=== PATIENT | male | born 1950 | race Caucasian/White ===

== ENCOUNTER 2016-09-23 17:32 | Emergency (ER) | payer OTHER ==
[~2016-09-23 17:32] MED LIST: MEDROL DOSEPAK1 PAC PO; NORCO 325 MG-51 TAB PO; PROAIR HFA0.09 MG/Ac INH; ROBITUSSIN W/CO10 ML PO; TAMIFLU 75MG75 MG PO
[2016-09-23 17:42] VITALS: BP 161/80
--- NOTE | 2016-09-23 18:10 | ED DYSPNEA/ASTHMA COMPLAINT ---
History of Present Illness General Chief Complaint: General Adult Stated Complaint: COUGHING AND BREATHING PROBLEM Source: patient, old records Exam Limitations: no limitations Vital Signs & Intake/Output Vital Signs & Intake/Output Vital Signs Date Time Temp Pulse Resp B/P B/P Pulse O2 O2 Flow FiO2 Mean Ox Delivery Rate 09/23 1830 97 Room Air 09/23 1812 83 09/23 1742 99.2 104 16 161/80 95 Room Air Allergies Coded Allergies: shellfish derived (Severe, ANAPHYLAXIS 09/23/16) Reconcile Medications Acetaminophen/Hydrocodone Bi ([place] 325 MG-5 MG) 1 TAB TAB 1 TAB PO Q6HR PRN PAIN Albuterol Sulfate (Proair Hfa) 90 MCG HFA.AER.AD 2 PUF INH Q4-6 PRN PRN ASTHMA (Reported) Albuterol Sulfate (Proair Hfa) 90 MCG HFA.AER.AD 2 PUF INH Q4-6 PRN PRN WHEEZING Azithromycin (Zithromax) 250 MG TABLET 1 DP PO AD bronchitis 2 the first day followed by 1 for days 2-5 Codeine Phosphate/Guaifenesi (Guaifen-Codeine 100-10 MG/5 Ml) 10 MG-100 MG/5 ML LIQUID 10 ML PO Q6HR PRN COUGH Methylprednisolone. (Medrol) 4 MG TAB.DS.PK 1 DP PO AD bronchitis 6 on day 1 then reduce by one tablet daily until gone Prednisone 20 MG TABLET 2 TAB PO DAILY PANCREATIC CA (Reported) Robitussin AC (Guaifenesin-Codeine Syrup) 10 ML UDC 10 ML PO Q6HR PRN COUGH Triage Note: TRIAGE: URI SYMPTOMS WITH PRODUCTIVE COUGH OF WHITE SPUTUM SINCE LAST NIGHT. HX COPD, QUIT SMOKING 3 YEARS AGO. REPORTS DISCOMFORT ONLY WHEN COUGHING TO NECK AND CHEST. FRONTAL AND TEMPORAL HEADACHE 11/30. TOOK ADVIL APPROX 0400 AND 2PM WITH MILD IMPROVEMENT. 02 SAT 95% AND TEMP 99.2 IN TRIAGE. DENIES N/V/D. PANCREATIC CA SX 2 YEARS AGO AT [facility] Triage Nurses Notes Reviewed? yes Onset: Abrupt Duration: day(s): (2), constant Timing: recent history Severity: moderate Activities at Onset: none Prior Episodes/Possible Cause: occasional episodes Modifying Factors: Worsens With: other (cough). Associated Symptoms: cough, wheezing HPI: 66-year-old male with history of COPD pancreatic cancer nonsmoker presents to ER for evaluation Complaining of productive cough of clear to white sputum for the past 2 days. He's been using his inhalers with minimal relief complaining of shortness of breath wheezing. No fever no chills. Patient reports to pain in his chest secondary from coughing. No dizziness lightheadedness, no doll pain nausea vomiting or diarrhea. 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 No modifying factors or associated symptoms (NANI BISHOP) Past History Travel History Traveled to [place] past 21 day No Medical History Any Pertinent Medical History? see below for history Neurological: NONE EENT: NONE Cardiovascular: NONE Respiratory: COPD Gastrointestinal: GERD, STOMACH ULCER Hepatic: NONE Renal: NONE Musculoskeletal: NONE Psychiatric: NONE Endocrine: NONE Blood Disorders: NONE Cancer(s): PANCREATIC CA Surgical History Surgical History: pancreatic ca Psychosocial History Who do you live with Spouse What is your primary language Bulgarian Tobacco Use: Quit >30 days ago ETOH Use: denies use Illicit Drug Use: denies illicit drug use Family History Hx Contributory? No (NANI BISHOP) Review of Systems Review of Systems Constitutional: Reports: see HPI. All Other Systems: Reviewed and Negative Comments Review of systems: See HPI, All other systems negative. Constitutional, no chills no fever, no malaise HEENT: no sore throat no congestion, no ear pain Cardiovascular: No chest pain , no palpitation Skin: no rashes, no change in skin Respiratory: No dyspnea cough no sputum no hemoptysis GI: No nausea no vomiting, no diarrhea, : No dysuria N Muscle skeletal: No joint pain, no back pain, no neck pain, Neurologic: No numbness, no headache Psych: No stress. Heme/endocrine: No bruising no bleeding Immunology: No lymphadenopathy (NANI BISHOP) Physical Exam Physical Exam General Appearance: well developed/nourished, no apparent distress, alert, awake Respiratory: rhonchi, wheezing Comments: Well-developed well-nourished person in no acute distress HEENT: Normal EENT exam; PERRL, EOMI,. HEAD is atraumatic. moist mucous membranes. Neck: Supple, no lymphadenopathy, normal range of motion Back: Nontender, no CVA tenderness. Full range of motion Cardiovascular: Regular rate and rhythms no murmurs rubs Respiratory: Chest nontender.There were no bony deformities, no asymmetry. No respiratory distress. Patient speaking in 3-4 word sentences, lungs are rhonchorous wheezing bilaterally Abdomen: Soft, nontender nondistended, Extremity: No edema, full range of motion of extremities Neuro: Alert oriented x3, motor sensory normal, . There were no obvious focal neurologic abnormalities. Skin: No appreciable rash on exposed skin, skin is warm and dry. Psych: Mood and affect is normal, memory and judgment is normal. Core Measures ACS in differential dx? Yes Severe Sepsis Present: No Septic Shock Present: No (SWETA CORONA,NANI) Progress Differential Diagnosis: asthma, AMI, bronchitis, costochondritis, CHF, COPD, musculoskeletal pain, pericarditis, pneumonia Plan of Care: Orders Procedure Date/time Status BLOOD CULTURE 09/23 1808 Active TROPONIN LEVEL 09/23 1808 Complete COMPREHENSIVE METABOLIC PANEL 09/23 1808 Complete CBC WITHOUT DIFFERENTIAL 09/23 1808 Complete EKG 09/23 173 Active Laboratory Tests 09/23/16 1825: Anion Gap 12, Estimated GFR > 60, BUN/Creatinine Ratio 15.0, Glucose 93, Calcium 8.7, Total Bilirubin 0.5, AST 30, ALT 41, Alkaline Phosphatase 115, Troponin I < 0.01, Total Protein 7.7, Albumin 4.6, Globulin 3.1, Albumin/Globulin Ratio 1.5, CBC w Diff NO MAN DIFF REQ, RBC 5.56, MCV 84.6, MCH 28.5, RDW 13.2, MPV 8.2, Gran % 77.2 H, Lymphocytes % 12.2 L, Monocytes % 9.4 H, Eosinophils % 1.0, Basophils % 0.2, Absolute Granulocytes 6.0, Absolute Lymphocytes 1.0 L, Absolute Monocytes 0.7 H, Absolute Eosinophils 0.1, Absolute Basophils 0, PUBS MCHC 33.7 Microbiology 09/23 1845 BLOOD: Blood Culture - RECD 09/23 183 BLOOD: Blood Culture - RECD Patient medicated DuoNeb soluMedrol IV labs ordered Repeat evaluation patient is feeling improved pending labs 09/23/2016 7:29:57 PM patient ambulatory around the ER with steady gait denies shortness of breath feeling much improved with cough medicine. I discussed with the patient at length all of their results. I had an extensive conversation regarding need for close follow up with their primary care physician this week as well as return precautions. I answered all of their questions, they feel comfortable with the plan and follow-up care. I discussed the medications that they will receive with the patient. I gave them signs and symptoms that could indicate an adverse reaction. I have advised them to limit their activities until they can see how they respond to the medication. (NANI BISHOP) Diagnostic Imaging: Viewed by Me: Radiology Read. Discussed w/RAD: Radiology Read. Radiology Impression: PATIENT: LUKAS GARIBAY PRESENT AGE: 66 PATIENT ACCOUNT NO: [id number] : 51 LOCATION: [facility] ORDERING PHYSICIAN: NANI CORONA SERVICE DATE: 09/23/16 EXAM TYPE: RAD - XRY-PORTABLE CHEST XRAY EXAMINATION: XR PORTABLE CHEST CLINICAL INFORMATION: Cough, dyspnea. COMPARISON: Chest x-ray 05/19/[address] chest 05/2014. TECHNIQUE: Portable frontal view of the chest was obtained. 0628 hours FINDINGS: Emphysematous hyperinflation of lungs. Lungs are clear. No pulmonary vascular congestion. No infiltrate or pleural effusion. The heart size is normal. The cardiac and the mediastinal contours are normal. Surgical clips in the upper abdomen. IMPRESSION: No acute abnormality of the chest. DICTATED BY: SARAH CHOE MD DATE/TIME DICTATED:09/23/161835 MDS RN:DIEGO DATE/TIME TRANSCRIBED:09/23/161835 CONFIDENTIAL, DO NOT COPY WITHOUT APPROPRIATE AUTHORIZATION. <Electronically signed in Other Vendor System> SIGNED BY: SARAH CHOE MD 09/23/16 1842 Initial ED EKG: normal intervals, normal p-waves, normal QRS complex, normal sinus rhythm (NANI BISHOP) Departure Departure Time of Disposition: 1919 Disposition: HOME OR SELF CARE Condition: Stable Clinical Impression Primary Impression: Bronchitis Referrals: MARGI WEISS MD (PCP/Family) Additional Instructions: zpak, medrol dose ngoc as directed. follow up with dr weiss tomorrow. robitussion with codeine for cough- this maymake you drowsy. return at anytime sooner with any concerns these were sent to [facility] Departure Forms: Customer Survey General Discharge Information Prescriptions: Current Visit Scripts Azithromycin (Zithromax) 1 DP PO AD #6 TAB 2 the first day followed by 1 for days 2-5 Methylprednisolone. (Medrol) 1 DP PO AD #1 DP 6 on day 1 then reduce by one tablet daily until gone Codeine Phosphate/Guaifenesi (Guaifen-Codeine 100-10 MG/5 Ml) 10 ML PO Q6HR PRN COUGH #200 ML Albuterol Sulfate (Proair Hfa) 2 PUF INH Q4-6 PRN PRN WHEEZING #1 INHAL Ref 1 (NANI BISHOP) PA/PROJECT ASST Co-Sign Statement Statement: ED Attending supervision documentation- [X] I saw and evaluated the patient. I have also reviewed all the pertinent lab results and diagnostic results. I agree with the findings and the plan of care as documented in the PA's/PROJECT ASST's documentation. [X] I have reviewed the ED Record and agree with the PA's/PROJECT ASST's documentation. [] Additions or exceptions (if any) to the PAs/PROJECT ASST's note and plan are summarized below: [] (DEE DEE GALLEGOS,AMAYA) Critical Care Note Critical Care Note Critical Care Time: non-applicable (NANI BISHOP)
[2016-09-23 18:41] LABS: ABSOLUTE BASOPHIL COUNT 0 /CUMM (0.0-0.2); ABSOLUTE EOSINOPHIL COUNT 0.1 /CUMM (0.0-0.7); ABSOLUTE MONOCYTE COUNT 0.7 /CUMM (0.10-0.60); BASOPHIL % 0.2 % (0.0-2.0); GRANULOCYTE % 77.2 % (42.2-75.2); MEAN CORPUSCULAR HGB 28.5 PG (27.0-31.0); MEAN CORPUSCULAR HGB CONC 33.7 G/DL (33.0-37.0); MEAN CORPUSCULAR VOLUME 84.6 FL (80.0-94.0); MEAN PLATELET VOLUME 8.2 FL (7.4-10.4); PLATELET COUNT 150 /CUMM (130-400); RBC DISTRIBUTION WIDTH 13.2 % (11.5-14.5); RED BLOOD CELL CT 5.56 /CUMM (4.70-6.10); WHITE BLOOD CELL COUNT 7.8 /CUMM (4.8-10.8)
--- NOTE | 2016-09-23 18:42 | RADIOLOGY REPORT ---
EXAMINATION: XR PORTABLE CHEST CLINICAL INFORMATION: Cough, dyspnea. COMPARISON: Chest x-ray 05/19/[address] chest 07/22/2014. TECHNIQUE: Portable frontal view of the chest was obtained. 0628 hours FINDINGS: Emphysematous hyperinflation of lungs. Lungs are clear. No pulmonary vascular congestion. No infiltrate or pleural effusion. The heart size is normal. The cardiac and the mediastinal contours are normal. Surgical clips in the upper abdomen. IMPRESSION: No acute abnormality of the chest.
[2016-09-23] MEDS ORDERED: PROAIR HFA8.5 GM INH ×2 (19:14→19:34)
[2016-09-23] MEDS ORDERED: PREDNISONE20 M1 PO (19:15)
[2016-09-23] MEDS ORDERED: GUAIFEN-CODEIN118 M1 PO (19:22)
[2016-09-23] MEDS ORDERED: ZITHROMAX250 M2 PO (19:22)
[2016-09-23] MEDS ORDERED: MEDROL4 M2 PO (19:22)
== END 2016-09-23 19:40 ==
LOC: ERH 17:32
PROVIDERS: Physician Assistant Medical
DX: J40 Bronchitis, not specified as acute or chronic (principal); Z87.891 Personal history of nicotine dependence; R06.02 Shortness of breath; R07.9 Chest pain, unspecified
CPT/HCPCS: 1263; 87040; 93005; 93010; 96374; J2930

== ENCOUNTER → 2016-11-25 | Day surgery (SDC) | payer OTHER ==
--- NOTE | 2016-11-19 14:19 | History & Physical Pre-Op ---
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 Shortly after surgery, he developed a bulge in the epigastric region related to surgical scar. The bulge has gotten bigger but it does not cause him pain. He notes no nausea vomiting or change to his bowel function. I saw him previously for a right inguinal hernia and recommended laparoscopic repair. He elected to observe his hernia. Reflected to have both hernias fixed bowel. Allergies/Medications Allergies: Coded Allergies: shellfish derived (Severe, ANAPHYLAXIS 09/23/16) Home Med list Albuterol Sulfate (Proair Hfa) 90 MCG HFA.AER.AD 2 PUF INH Q4-6 PRN PRN ASTHMA (Reported) Pantoprazole Sodium (Protonix) 40 MG TABLET.DR 1 TAB PO DAILY HX ULCERS ( Reported) Past History Medical History Neurological: NONE EENT: NONE Cardiovascular: NONE Respiratory: asthma, COPD, obstructive sleep apnea Gastrointestinal: GERD, STOMACH ULCER Hepatic: NONE Renal: NONE Musculoskeletal: NONE Psychiatric: substance abuse Endocrine: NONE Blood Disorders: NONE Cancer(s): PANCREATIC CA Surgical History Pertinent Surgical History: pancreaticoduodenectomy, partial gastrectomy with B2 Past Family/Social History Psychosocial History Smoking Status: Former Smoker ETOH Use: denies use Review of Systems Review of Systems: Patient reports no fatigue, no fever, no night sweats, no significant weight gain, no significant weight loss, and no exercise intolerance. He reports no abnormal moles, no jaundice, no hives, no eczema, and no rashes. He reports no swollen glands and no neck stiffness. He reports no cough, no wheezing, no shortness of breath, and no coughing up blood. He reports no chest pain, no arm pain on exertion, no shortness of breath when walking, no shortness of breath when lying down, no palpitations, and no known heart murmur. He reports normal appetite, no abdominal pain, no vomiting, no vomiting blood, no bloating, no diarrhea, no belching, no constipation, no regurgitation, and no rectal bleeding. He reports no incontinence, no difficulty urinating, no hematuria, and no increased frequency. He reports no muscle aches, no muscle weakness, no arthralgias/joint pain, and no back pain. Exam & Diagnostic Data Last 24 Hrs of Vital Signs/I&O Patient is a 65-year-old male. Constitutional: General Appearance: healthy-appearing, well-nourished, and well- developed. Level of Distress: no acute distress. Ambulation: ambulating normally. Head: Head: normocephalic and atraumatic. Cardiovascular: Heart Auscultation: normal S1 and S2; no murmurs, rubs, or gallops; and regular rate and rhythm. Lungs: Respiratory effort: no dyspnea. Percussion: no dullness, flatness, or hyperresonance. Auscultation: no wheezing, rales/crackles, or rhonchi and breath sounds normal, good air movement, and clear to auscultation. Back: Thoracolumbar Appearance: normal curvature. Abdomen: Inspection and Palpation: no tenderness, guarding, masses, rebound tenderness, or CVA tenderness and soft and non-distended. Bowel Sounds: normal. Liver: non-tender and no hepatomegaly. Spleen: non-tender and no splenomegaly. Hernia: inguinal (reducible right) and incisional (reducible epigastric with 3cm defect). Skin: Inspection and palpation: no rash, lesions, ulcer, induration, nodules, jaundice, or abnormal nevi and good turgor. Musculoskeletal:: Extremities: no cyanosis, edema, varicosities, or palpable cord. Motor Strength and Tone: normal tone and motor strength. Joints, Bones, and Muscles: no contractures, malalignment, tenderness, or bony abnormalities and normal movement of all extremities. Psychiatric: Insight: good judgement and insight. Mental Status: normal mood and affect and active and alert. Orientation: to time, place, and person. Memory: recent memory normal and remote memory normal. Assessment/Plan Assessment/Plan: 1. Incisional hernia K43.2: Incisional hernia without obstruction or gangrene 2. Right inguinal hernia - Patient requests repair of both hernias concurrently. I normally do not perform this due to complexity of each individual hernia, and different approaches to repair. However he is of good health, favorable body habitus and would do well with concurrent repair. Plan will be to perform laparoscopic right inguinal hernia repair, preperitoneal. We will then perform laparoscopic transperitoneal incisional hernia repair with mesh. K40.90: Unilateral inguinal hernia, without obstruction or gangrene, not specified as recurrent Discussion Notes Discussed laparoscopic preperitoneal inguinal hernia repair with mesh, the need for general anesthesia to perform it and the outpatient nature of surgery. Discussed the outcomes of surgery including 3-5% recurrence rate, 1% infection and bleeding risk. Discussed the permanent nature of mesh for repair and need for removal if infection occurs. Discussed the small risk of testicular vessel injury and vas deferens injury (males). Discussed the pathophysiology of incisional hernias and the need for mesh repair. He understands the permanent nature of mesh. Discussed the risks of surgery including recurrence of the hernia, bleeding and infection. He understands that if mesh infection occurs, removal will necessary. He understands the need for general anesthesia. As Ranked By This Provider Problem List: 1. Unilateral inguinal hernia without obstruction or gangrene 2. Incisional hernia, without obstruction or gangrene
[~2016-11-25] VITALS: Ht 167.6 cm; Wt 63.5 kg
[~2016-11-25] MED LIST changes: +GUAIFEN-CODEIN118 M1 PO; +MEDROL4 M2 PO; +PREDNISONE20 M1 PO; +PROAIR HFA8.5 GM INH; +PROTONIX40 M3 PO; +ZITHROMAX250 M2 PO
--- NOTE | 2016-11-25 10:30 | Operative Report ---
Operative/Inv Procedure Report Surgery Date: 11/25/16 Name of Procedure: 1. Laparoscopic incisional hernia repair 2. Laparoscopic right inguinal hernia repair Pre-Operative Diagnosis: Incisional hernia Right inguinal hernia Post-Operative Diagnosis: Same same Estimated Blood Loss: scant Surgeon/Pack Operator: LATIA GALLEGOS,CRISTEL Menchaca/Mariano CORONA Anesthesia: general endotracheal tube Implants: Parietex right inguinal hernia mesh 12 cm Parietex ventral hernia mesh Operative Indication: See preoperative H&P Operative/Procedure Note Note: After consent patient is brought to the operating room laid supine. General anesthesia was obtained and the abdomen was prepped and draped. Skin was anesthetized with local anesthesia and a transverse infraumbilical incision made sharply. We identified the rectus fascia and incised transversely. Stay sutures were placed. Rectus muscle was retracted laterally and a dissecting balloon placed posterior to it. It was inflated under direct vision the camera and replaced with a blunt Wills port. Gas was instilled. 2, 5 mm ports were placed in the infraumbilical midline after local anesthesia was instilled and under direct vision and camera. Began our dissection at the pubis and delineated the symphysis. Jeovany's ligament was identified and cleared on the right side. There is a large direct hernia which was delivered and reflected inferiorly. Then dissected laterally and developed the iliopubic tract. The cord structures were circumferentially dissected. Once the dissection was completed a right-sided piece of Parietex mesh was placed in the cavity. It was placed around the cord structures re-create the internal ring and cover the femoral and direct spaces as well. Gas was allowed to escape on maintaining proper orientation of the mesh. The fascia was closed with 0 Vicryl suture. We then turned our attention to the incisional hernia. There was a reducible hernia in the epigastric region related to prior laparotomy for pancreatic resection The skin and left upper quadrant was after local anesthesia and a transverse incision made sharply. Using a 12 mm optical trocar we gained access to the peritoneum visually. Pneumoperitoneum was achieved. No overt bowel injury was identified. 2, 5 mm ports were placed and left lower quadrant after local anesthesia was instilled and under direct vision the camera. The abdomen was explored. There were numerous adhesions many of which were in the left upper quadrant making visualization difficult. We changed to a 5 mm scope which was placed in the inferior port site. We then able to carry the dissection much more smoothly, and under better vision. We took down the preperitoneal fat circumferentially with cautery and sharp dissection. Once the fascia was cleared we measured the dimensions of the hernia defects. Superiorly to inferiorly it measured 6 cm. I chose a 12 cm Parietex mesh to cover the defect. The mesh was anchored in 4 quadrants with 0 Florence-Adryan suture. It was then hydrated rolled up and placed in the peritoneal cavity. It was unraveled below the defect. The transfixion sutures then brought up percutaneously in a sequential fashion. The sutures then tied down after the mesh was laying flat. The mesh was then anchored to the anterior abdominal wall in a double crown fashion using the absorbable tackers. Once were happy the placement mesh we allowed the gas to esape. The ports were delivered and fascia and the left upper quadrant closed with 0 Vicryl suture. Skin incisions closed with 4-0 Vicryl. Steri-Strips and sterile dressing applied. Sponge and needle counts are correct CC: JOSEPHINE GALLEGOS,MARGI
== END ==
LOC: STS 02:17
DX: K43.2 Incisional hernia without obstruction or gangrene (principal); K40.90 Unilateral inguinal hernia, without obstruction or gangrene, not specified as recurrent; K66.0 Peritoneal adhesions (postprocedural) (postinfection); Z85.07 Personal history of malignant neoplasm of pancreas; J45.909 Unspecified asthma, uncomplicated; J44.9 Chronic obstructive pulmonary disease, unspecified; Z87.891 Personal history of nicotine dependence; K21.9 Gastro-esophageal reflux disease without esophagitis
CPT/HCPCS: C1781; J0131; J0690; J2250